=== PATIENT | female | born 1955 | race Caucasian/White ===

== ENCOUNTER 2018-08-26 12:45 | Outpatient (CLI) | payer MEDICARE | END 2018-08-26 23:59 | disposition home or self-care (01) | LOC: CFH 12:45 | PROVIDERS: ATTEND Pediatrics | DX: Z12.31 Encounter for screening mammogram for malignant neoplasm of breast (principal); Z88.0 Allergy status to penicillin | CPT/HCPCS: 76641; 77063; 77067 ==

== ENCOUNTER 2019-09-14 13:59 | Outpatient (CLI) | payer MEDICARE | END 2019-09-14 23:59 | disposition home or self-care (01) | LOC: CFH 13:59 | PROVIDERS: ATTEND Pediatrics | DX: Z12.31 Encounter for screening mammogram for malignant neoplasm of breast (principal) | CPT/HCPCS: 76641; 77063; 77067 ==

== ENCOUNTER → 2020-09-25 | Outpatient (CLI) | payer MEDICARE | END | disposition home or self-care (01) | LOC: CFH 15:15 | PROVIDERS: ATTEND Pediatrics | DX: Z12.31 Encounter for screening mammogram for malignant neoplasm of breast (principal); M85.80 Other specified disorders of bone density and structure, unspecified site; R92.8 Other abnormal and inconclusive findings on diagnostic imaging of breast; N64.89 Other specified disorders of breast; Z78.0 Asymptomatic menopausal state | CPT/HCPCS: 76641; 77063; 77067 ==

== ENCOUNTER → 2020-10-05 | Outpatient (CLI) | payer MEDICARE | END | disposition home or self-care (01) | LOC: CFH 10:37 | PROVIDERS: ATTEND Pediatrics | DX: N63.21 Unspecified lump in the left breast, upper outer quadrant (principal); R92.8 Other abnormal and inconclusive findings on diagnostic imaging of breast | CPT/HCPCS: 76642; 77065 ==

== ENCOUNTER 2020-10-17 09:57 | Outpatient (CLI) | payer MEDICARE ==
[2020-10-17] MEDS ORDERED: LIDOCAINE 1%-EPI 1:100K, 20ML ONE (10:15)
== END 2020-10-17 23:59 | disposition home or self-care (01) ==
LOC: CFH 09:57
PROVIDERS: ATTEND Pediatrics
DX: R92.8 Other abnormal and inconclusive findings on diagnostic imaging of breast (principal); N63.21 Unspecified lump in the left breast, upper outer quadrant
CPT/HCPCS: 19083; 88305; 77065